=== PATIENT | female | born 1970 | race Caucasian/White ===

== ENCOUNTER → 2020-05-30 16:20 | Outpatient (CLI) | payer OTHER, SELFPAY ==
--- NOTE | ~2020-05-30 | MM_ITS ---
EXAMINATION: MM screening galen BI w prasad HISTORY: Screening TECHNIQUE: Craniocaudal and mediolateral oblique 3-D tomosynthesis images were obtained and synthetic 2-D images were generated. CAD analysis was submitted and interpreted. COMPARISON: Comparison to multiple prior studies sequentially, with oldest reviewed study dated 11/2012. BREAST PARENCHYMAL COMPOSITION: The breasts are heterogenously dense, which may obscure small masses. FINDINGS: There is no evidence of suspicious mass, calcification, or architectural distortion to sugg est malignancy in either breast. There has been no suspicious interval change. IMPRESSION: 1. No mammographic evidence of malignancy. 2. Recommend routine screening mammography in one year. BI-RADS Category 1: Negative Reviewed, dictated and finalized at location A. DSTITCH HEMMER
== END ==
PROVIDERS: PCP Family Medicine Adolescent Medicine; Visit Provider Nurse Practitioner Obstetrics & Gynecology
DX: Z12.31 Encounter for screening mammogram for malignant neoplasm of breast (principal)
CPT/HCPCS: 77063; 77067

== ENCOUNTER → 2020-06-07 07:57 | Outpatient (CLI) | payer OTHER, SELFPAY ==
--- NOTE | ~2020-06-07 | US_ITS ---
EXAMINATION: US abdomen complete EXAM DATE: 06/07/2020 08:19 INDICATION: Epigastric RUQ abd pain. TECHNIQUE: Multiple grayscale and Doppler images of the complete abdomen were obtained (by a technolo gist who performed the scan) and subsequently reviewed. There is no prior study for comparison. FINDINGS: The abdominal aorta is normal in caliber. Visualized portion IVC is patent. The pancreatic head a nd body are normal in appearance. The pancreatic tail is not visualized. The liver has normal echogenicity and contour. There are no focal liver lesions identified. There is no evidence of intrahepatic biliary duct dilation. Portal venous flow was seen in the hepatopedal , normal direction and has normal Doppler waveform. Common bile duct measures 4 mm, which is normal. The gallbladder wall is normal in thickness, with ex pected amount of distention. No sonographic evidence of pericholecystic fluid. There is no cholelit hiases. Technologist performing exam reports patient did not demonstrate sonographic Sorensen's sign. Please note that this sign is less reliable in patients who have received pain medication. Right kidney: There is normal contour and echogenicity. It measures 11.0 x 3.7 x 5.8 centimeters. There are no focal renal lesions identified. There is no hydronephrosis. Left kidney: There is normal contour and echogenicity. It measures 11.1 x 4.4 x 5.9 centimeters. T here are no focal renal lesions identified. There is no hydronephrosis. The spleen measures 10.5 centimeters and is morphologically normal. IMPRESSION: Unremarkable complete abdominal ultrasound exam. Reviewed, dictated and finalized at location B. 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
== END ==
PROVIDERS: Visit Provider Family Medicine Adolescent Medicine
DX: R10.13 Epigastric pain (principal)
CPT/HCPCS: 76700

== ENCOUNTER → 2020-06-11 18:13 | Outpatient (CLI) | payer OTHER, SELFPAY ==
--- NOTE | ~2020-06-11 | XR_ITS ---
EXAMINATION: XR lumbar spine min 4V DATE: 06/11/2020 18:36 INDICATION: Low back pain. Facet syndrome. TECHNIQUE: 5 views of lumbar spine were obtained. COMPARISON: None. FINDINGS: There is 6 degrees dextrocurvature of lumbar spine. Vertebral body heights are normal. Ther e are small endplate osteophytes at multiple levels. There is moderate bilateral facet joint osteoart hritis at L5-S1. IMPRESSION: 1. Mild lumbar spondylosis. Reviewed, dictated and finalized at location A. HELPER FRUIT IMPRESSION: 1. Mild lumbar spondylosis.
== END ==
PROVIDERS: PCP Family Medicine Adolescent Medicine
DX: M54.6 Pain in thoracic spine (principal); M47.896 Other spondylosis, lumbar region
CPT/HCPCS: 72110

== ENCOUNTER → 2020-09-04 16:56 | Outpatient (CLI) | payer OTHER, SELFPAY ==
--- NOTE | ~2020-09-04 | XR_ITS ---
EXAMINATION: XR shoulder LT min 2V DATE: 09/04/2020 17:19 INDICATION: Left shoulder pain and limited range of motion TECHNIQUE: AP internally and externally rotated and transscapular Y views of the left shoulder were o btained. COMPARISON: None FINDINGS: Normal alignment. No fracture. Glenohumeral joint is normal. Acromioclavicular joint is normal. Soft tissues are unremarkable. Visualized portions of the lungs are clear. IMPRESSION: Negative left shoulder radiographs. Reviewed, dictated and finalized at location A. ICATION DEVELOPMENT TEAM LEAD
== END ==
PROVIDERS: PCP Family Medicine Adolescent Medicine; Visit Provider Physician Assistant
DX: M25.512 Pain in left shoulder (principal)
CPT/HCPCS: 73030

== ENCOUNTER → 2020-09-10 10:12 | Outpatient (CLI) | payer OTHER, SELFPAY ==
--- NOTE | ~2020-09-10 | MR_ITS ---
EXAMINATION: MR shoulder LT wo con DATE: 09/10/2020 10:52 INDICATION: Left shoulder pain TECHNIQUE: Magnetic resonance imaging (MRI) of the affected shoulder was performed without intravenou s contrast. Sequences included axial PD-weighted FS FSE, coronal oblique PD-weighted FS FSE, coronal oblique T2-weighted FS FSE, sagittal PD-weighted FS FSE, and sagittal T1-weighted SE. COMPARISON: None. FINDINGS: Coracoacromial arch: The acromion undersurface is curved in morphology (type II). The coracoacromial ligament is normal. A nimal acromioclavicular osteoarthritis with mild subarticular cystic change at the acromion. Rotator cuff: Mild tendinopathy at the distal supraspinatus tendon. The infraspinatus, teres minor subscapularis te ndons are normal. Normal rotator cuff muscle bulk and signal. Biceps tendon, glenoid labrum and glenohumeral cartilage: Long head of the biceps tendon is normal. Glenoid labrum is normal. Glenohumeral cartilage is normal. Fluid: Small amount of fluid in the long head biceps tendon sheath which is disproportionate to the physiolo gic amount of fluid in the glenohumeral joint space consistent with mild bicipital tenosynovitis. No loose osteochondral bodies. No abnormal fluid signal in the subacromial/subdeltoid bursa to suggest b ursitis. Bones/other: Normal marrow signal with no edema, fracture or pathologic marrow replacing process. There is increas ed soft tissue density along the biceps gisela sling and capsule at the axillary recess with loss of the normal T1 hyperintense fat signal. Additionally there is mild thickening and mild increased signa l of the joint capsule at the axillary recess. IMPRESSION: 1. Thickening of the capsule at the axillary recess and increased soft tissue density along the bicep s gisela sling at the rotator cuff interval, both findings which can be seen in the setting of adhesi ve capsulitis which is ultimately a clinical diagnosis. 2. Mild tendinopathy without discrete tear at the distal supraspinatus tendon. 3. Mild bicipital tenosynovitis. Reviewed, dictated and finalized at location A. NG SERVICES MANAGER IMPRESSION: 1. Thickening of the capsule at the axillary recess and increased soft tissue d ensity along the biceps gisela sling at the rotator cuff interval, both finding s which can be seen in the setting of adhesive capsulitis which is ultimately a clinical diagnosis. 2. Mild tendinopathy without discrete tear at the distal supraspinatus tendon. 3. Mild bicipital tenosynovitis.
== END ==
PROVIDERS: PCP Family Medicine Adolescent Medicine; Visit Provider Physician Assistant
DX: M75.22 Bicipital tendinitis, left shoulder (principal)
CPT/HCPCS: 73221

== ENCOUNTER → 2021-01-11 07:18 | Outpatient (CLI) | payer OTHER, SELFPAY ==
--- NOTE | ~2021-01-11 | MR_ITS ---
EXAMINATION: MR lumbar spine wo con DATE: 01/13/2021 09:08 CDT INDICATION: Low back pain. Leg paresthesias. TECHNIQUE: Magnetic resonance imaging (MRI) of the lumbar spine was performed without intravenous con trast. Sequences included sagittal T2-weighted FSE, sagittal T2-weighted FS FSE, sagittal T1-weighted FSE, and axial T2-weighted FSE. COMPARISON: Lumbar spine series dated 06/11/2020 FINDINGS: There is normal lumbar lordosis. There is mild loss of disc height and disc signal at L3-4, L4-5 and L5-S1. Conus medullary is and cauda equina are unremarkable. No focal bone marrow signal ab normalities. The following disc levels are specifically discussed: T11-T12: The disc does not extend beyond the endplate margin. There is no facet joint osteoarthritis. There is no neural foraminal stenosis. There is no central canal stenosis. T12-L1: The disc does not extend beyond the endplate margin. There is no facet joint osteoarthritis. There is no neural foraminal stenosis. There is no central canal stenosis. L1-L2: The disc does not extend beyond the endplate margin. There is no facet joint osteoarthritis. T here is no neural foraminal stenosis. There is no central canal stenosis. L2-L3: The disc does not extend beyond the endplate margin. There is no facet joint osteoarthritis. T here is no neural foraminal stenosis. There is no central canal stenosis. L3-L4: The disc does not extend beyond the endplate margin. There is mild facet joint osteoarthritis. There is no neural foraminal stenosis. There is no central canal stenosis. L4-L5: There is mild annular disc bulging. There is mild facet joint osteoarthritis. There is no sign ificant neural foraminal stenosis. There is no central canal stenosis. L5-S1: There is mild annular disc bulging. There is mild facet joint osteoarthritis. There is no sign ificant neural foraminal stenosis. There is no central canal stenosis. IMPRESSION: 1. Mild lumbar spondylosis. Reviewed, dictated and finalized at location B. IMPRESSION: 1. Mild lumbar spondylosis.
== END ==
PROVIDERS: PCP Family Medicine Adolescent Medicine; Visit Provider Physician Assistant
DX: R20.0 Anesthesia of skin (principal); M47.816 Spondylosis without myelopathy or radiculopathy, lumbar region
CPT/HCPCS: 72148

== ENCOUNTER → 2021-01-14 16:44 | Outpatient (CLI) | payer OTHER, SELFPAY ==
--- NOTE | ~2021-01-14 | XR_ITS ---
EXAMINATION: XR pelvis 1-2V DATE: 01/14/2021 17:47 INDICATION: Chronic low back pain. TECHNIQUE: An anteroposterior view of the pelvis was obtained. COMPARISON: None. FINDINGS: Bone alignment is normal. No fracture. There is mild osteoarthritis of the hips. IMPRESSION: 1. Mild osteoarthritis of the hips. Reviewed, dictated and finalized at location A.
== END ==
PROVIDERS: PCP Family Medicine Adolescent Medicine; Visit Provider Physician Assistant
DX: M16.0 Bilateral primary osteoarthritis of hip (principal)
CPT/HCPCS: 72170

== ENCOUNTER → 2021-08-29 16:18 | Outpatient (CLI) | payer OTHER, SELFPAY ==
--- NOTE | ~2021-08-29 | MM_ITS ---
EXAMINATION: MM screening galen BI w prasad HISTORY: Screening TECHNIQUE: Craniocaudal and mediolateral oblique 3-D tomosynthesis images were obtained and synthetic 2-D images were generated. CAD analysis was submitted and interpreted. COMPARISON: Comparison to multiple prior studies sequentially, with oldest reviewed study dated 11/2012. BREAST PARENCHYMAL COMPOSITION: The breasts are heterogeneously dense, which may obscure small masses . FINDINGS: There is no evidence of suspicious mass, calcification, or architectural distortion to sugg est malignancy in either breast. There has been no suspicious interval change. IMPRESSION: 1. No mammographic evidence of malignancy. 2. Recommend routine screening mammography in one year. BI-RADS Category 1: Negative Reviewed, dictated and finalized at location A. PRINCIPAL
== END ==
PROVIDERS: PCP Family Medicine Adolescent Medicine; Visit Provider Nurse Practitioner Obstetrics & Gynecology
DX: Z12.31 Encounter for screening mammogram for malignant neoplasm of breast (principal)
CPT/HCPCS: 77063; 77067

== ENCOUNTER 2021-10-24 00:15 | Day surgery (SDC) | payer OTHER, SELFPAY ==
[2021-08-28 15:00] VITALS: BMI 25.8
[2021-10-14 13:21] VITALS: BMI 25.8
--- NOTE | 2021-10-23 13:57 | WPDANESEPPF ---
Anes - Initial Pre Proc Eval Procedure: Operation Date: 10/24/21 08:00 Proposed Procedures p Screening Colonoscopy - Jarocho Murrell MD Date/Time: 10/23/21 13:57 Surgeon: Jarocho Murrell MD Pre Op Diagnosis: neoplasm screening Patient Data Age: 51 Gender: F Height: 1.73 m Weight: 77 kg Allergies Allergy/AdvReac Type Severity Reaction Status Date / Time erythromycin base Allergy Mild Nausea and Verified 10/24/21 06:54 Vomiting Patient hx anesthesia problems: none Family hx anesthesia problems: none Results Review: All pre-operative results and documents have been reviewed as part of the pre-operative evaluation. PMFSH Past Medical History Medical History Adhesive capsulitis of left shoulder Depression ETOH abuse Surgical History Surgical History (Updated 09/16/20 @ 09:01 by Bruna Hernandez MA) History of hysterectomy (~2002) History of tonsillectomy (~1989) History of wisdom tooth extraction (~1989) Hx of removal of ovary (~2015) Family History Family History (Updated 09/16/20 @ 09:02 by Bruna Hernandez MA) Father Malignant neoplasm of prostate Rheumatoid arthritis Mother Uterine cancer Social History Social History (Updated 09/16/20 @ 09:01 by Bruna Hernandez MA) Smoking status: Never smoker Alcohol intake: current Drinks per week: 12 Alcohol use details: socially Substance use: never Substance use type: does not use Living arrangements: with family Spiritual care concerns: No Anes - Eval Final PreProcedure Day of Procedure 10/23/21 13:57 Patient weight: normal Heart: regular rate and rhythm Lungs: clear to auscultation and normal air movement Airway: Mallampati scale class II Neurological: alert and oriented Last oral intake: >/= 8 hours ASA classification: II Emergent: no Anesthetic plan: proceed Anesthesia type and monitoring: general GIVS Results Review: All pre-operative results and documents have been reviewed as part of the pre-operative evaluation. Informed Consent: The patient's anesthetic plan and its attendant risks and benefits were discussed with the patient/family/POA. Questions were solicited and answers provided to the satisfaction of the patient/family/POA.
[2021-10-24 06:56] VITALS: BP 137/87; PULSE 83; RESP 20; TEMP 36; O2SAT 100
[2021-10-24] MEDS: LACTATED RINGERS 1,000 ML 150 ML IV CONT (07:05)
--- NOTE | 2021-10-24 08:04 | WPDGICN ---
Assessment and Plan Assessment and plan (1) Encounter for screening colonoscopy: Code(s): Z12.11 - Encounter for screening for malignant neoplasm of colon Status: Acute Assessment and Plan: Patient presents for screening colonoscopy. Appears to be at average risk for colon polyps. Further recommendations will be given after endoscopy. GI Consult Note Consult date/time: 10/24/21 08:04 HPI: Kate Nathan is a 51 year old female Presents for screening colonoscopy. Patient's current weight appetite and bowel movements are normal. Patient denies abdominal pain. She has had no bleeding. Family history is noncontributory. She presents today for screening exam. Review of Systems Review of Systems: All systems reviewed & are unremarkable except as noted in HPI and below PMFSH Past Medical History Medical History Adhesive capsulitis of left shoulder Depression ETOH abuse Surgical History Surgical History (Updated 09/16/20 @ 09:01 by Bruna Hernandez MA) History of hysterectomy (~2002) History of tonsillectomy (~1989) History of wisdom tooth extraction (~1989) Hx of removal of ovary (~2015) Family History Family History (Updated 09/16/20 @ 09:02 by Bruna Hernandez MA) Father Malignant neoplasm of prostate Rheumatoid arthritis Mother Uterine cancer Social History Social History (Updated 09/16/20 @ 09:01 by Bruna Hernandez MA) Smoking status: Never smoker Alcohol intake: current Drinks per week: 12 Alcohol use details: socially Substance use: never Substance use type: does not use Living arrangements: with family Spiritual care concerns: No Meds Home Medications and Allergies Allergies Allergy/AdvReac Type Severity Reaction Status Date / Time erythromycin base Allergy Mild Nausea and Verified 10/24/21 06:54 Vomiting Vital Signs Vital Signs - 24 hr 10/24/21 06:56 Temperature 96.8 F L Pulse Rate 83 Respiratory Rate 20 Blood Pressure 137/87 Pulse Oximetry 100 Exam Narrative: Physical exam reveals patient to be alert. Vital signs stable. HEENT exam is unremarkable. Patient is anicteric. Lungs are clear to auscultation and percussion. Heart is without murmur or extra sounds. Abdominal exam bowel sounds are present soft nontender with no organomegaly. Digital external rectal exam is normal.
[2021-10-24 08:31] VITALS: BP 110/60; PULSE 74; RESP 20; O2SAT 100
[2021-10-24 08:41] VITALS: BP 111/62; PULSE 60; RESP 18; O2SAT 100
[2021-10-24 08:51] VITALS: BP 120/73; PULSE 55; RESP 18; O2SAT 100
== END 2021-10-24 09:00 | disposition home or self-care (01) ==
PROVIDERS: PCP Family Medicine Adolescent Medicine; Visit Provider Internal Medicine Gastroenterology
PROC: 0DJD8ZZ Inspection of Lower Intestinal Tract, Via Natural or Artificial Opening Endoscopic (ICD-10-PCS; CPT 45378; principal; 2021-10-24 08:00)
DX: Z12.11 Encounter for screening for malignant neoplasm of colon (principal); K64.8 Other hemorrhoids
CPT/HCPCS: 45378; J2001; J2704; J7120

== ENCOUNTER 2022-11-02 06:04 | Day surgery (SDC) | payer OTHER, SELFPAY ==
[2022-10-13 14:22] VITALS: BMI 26.3
[2022-10-19 13:46] VITALS: BMI 25.1
--- NOTE | 2022-10-31 09:37 | PM.HPGS ---
History of Present Illness History of Present Illness Consent: Risks, benefits, and alternatives have been discussed and questions answered. Patient agrees to proceed with procedure. Chief complaint: Gerd, Epigastric Pain, ABD Pain, Diarrhea Narrative: Kate Nathan is a 52 year old female referred for investgation of epigastric pain and bloating. She also had been diagnosed with irritable bowel syndrome with diarrhea 20+ years ago and reports her symptoms would be just intermittent diarrhea over the years.? She believes after her colonoscopy in October 2021 she began having worsening symptoms of diarrhea that is watery with fecal urgency with associated abdominal cramping and increased gurgling. At the time of that colonoscopy which apparently was for screening purposes, no biopsies were obtained. The abdominal cramping will dissipate after BM.? The most concerning symptom for her is that she will have nocturnal wakening of this and will keep her up all night and then will have to call off work.? She has been taking budesonide now for was 6 weeks and actually her symptoms are significantly improved. She also took Xifaxan for possible SIBO during that time. Review of Systems Review of Systems: All systems reviewed & are unremarkable except as noted in HPI and below PMFSH Past Medical History Medical History Adhesive capsulitis of left shoulder Bloating Chronic diarrhea Depression Epigastric pain ETOH abuse Fatty stools GERD (gastroesophageal reflux disease) Surgical History Surgical History History of hysterectomy (~2002) History of tonsillectomy (~1989) History of wisdom tooth extraction (~1989) Hx of removal of ovary (~2015) Family History Family History Father Malignant neoplasm of prostate Rheumatoid arthritis Mother Uterine cancer Social History Social History Smoking status: Never smoker Second hand tobacco smoke exposure: No Alcohol intake: current Drinks per week: 6 Alcohol use details: socially Substance use: never Substance use type: does not use Living arrangements: with family Occupation/Education: occupation Gender identity (if verbalized by the patient): Female Sexual Orientation (if Verbalized by the Patient): Straight or Heterosexual Spiritual care concerns: No Agree to blood products: Yes Meds Home Medications and Allergies Home Medications Medication Instructions Recorded Confirmed Type dicyclomine 10 mg capsule 10 mg PO TID #60 caps 08/20/22 11/02/22 Rx omeprazole 20 mg capsule,delayed 20 mg PO QHS #30 caps 08/20/22 11/02/22 Rx release sertraline 50 mg tablet 50 mg PO .hs #30 tabs 09/02/22 11/02/22 Rx cholestyramine (with sugar) 4 gram 4 g PO BID #60 ea 09/08/22 11/02/22 Rx powder for susp in a packet (Questran) budesonide 3 mg 9 mg PO DAILY #90 ea 09/16/22 11/02/22 Rx capsule,delayed,extended release rifaximin 550 mg tablet (Xifaxan) 550 mg PO TID 14 days #42 tabs 09/30/22 11/02/22 Rx Allergies Allergy/AdvReac Type Severity Reaction Status Date / Time erythromycin base AdvReac Mild Nausea and Verified 11/02/22 06:29 Vomiting Exam Const: General: alert Orientation/consciousness: patient oriented x3 Resp: Auscultation: clear to auscultation bilaterally Cardio: Rhythm: regular rhythm GI: GI Palp: Yes Soft to palpation and No Tenderness to palpation present (GI) Neuro: General: patient oriented x3 Assessment and Plan Assessment and plan (1) Epigastric pain: Code(s): R10.13 - Epigastric pain Status: Acute Assessment and Plan: EGD with possible biopsy or dilatation or cautery. (2) Chronic diarrhea: Code(s): K52.9 - Noninfective gastroenteritis and colitis, unspecified Status:
[2022-11-02 06:25] VITALS: BP 129/80; PULSE 77; RESP 16; TEMP 37; O2SAT 99
--- NOTE | 2022-11-02 06:50 | WPDANESEPPF ---
Anes - Initial Pre Proc Eval Procedure: Operation Date: 11/02/22 07:30 Proposed Procedures p Esophagogastroduodenoscopy - Nick Tan MD s Flexible Sigmoidoscopy - Nick Tan MD Date/Time: 11/02/22 06:50 Surgeon: Nick Tan MD Pre Op Diagnosis: Gerd, Epigastric Pain, ABD Pain, Diarrhea Patient Data Age: 52 Gender: F Height: 1.73 m Weight: 73.3 kg Allergies Allergy/AdvReac Type Severity Reaction Status Date / Time erythromycin base AdvReac Mild Nausea and Verified 11/02/22 06:29 Vomiting Home Medications Medication Instructions Recorded Confirmed Type dicyclomine 10 mg capsule 10 mg PO TID #60 caps 08/20/22 11/02/22 Rx omeprazole 20 mg capsule,delayed 20 mg PO QHS #30 caps 08/20/22 11/02/22 Rx release sertraline 50 mg tablet 50 mg PO .hs #30 tabs 09/02/22 11/02/22 Rx cholestyramine (with sugar) 4 gram 4 g PO BID #60 ea 09/08/22 11/02/22 Rx powder for susp in a packet (Questran) budesonide 3 mg 9 mg PO DAILY #90 ea 09/16/22 11/02/22 Rx capsule,delayed,extended release rifaximin 550 mg tablet (Xifaxan) 550 mg PO TID 14 days #42 tabs 09/30/22 11/02/22 Rx Patient hx anesthesia problems: none Family hx anesthesia problems: none Results Review: All pre-operative results and documents have been reviewed as part of the pre-operative evaluation. [facility] Past Medical History Medical History Adhesive capsulitis of left shoulder Bloating Chronic diarrhea Depression Epigastric pain ETOH abuse Fatty stools GERD (gastroesophageal reflux disease) Surgical History Surgical History History of hysterectomy (~2002) History of tonsillectomy (~1989) History of wisdom tooth extraction (~1989) Hx of removal of ovary (~2015) Family History Family History Father Malignant neoplasm of prostate Rheumatoid arthritis Mother Uterine cancer Social History Social History Smoking status: Never smoker Second hand tobacco smoke exposure: No Alcohol intake: current Drinks per week: 6 Alcohol use details: socially Substance use: never Substance use type: does not use Living arrangements: with family Occupation/Education: occupation Gender identity (if verbalized by the patient): Female Sexual Orientation (if Verbalized by the Patient): Straight or Heterosexual Spiritual care concerns: No Agree to blood products: Yes Anes - Eval Final PreProcedure Day of Procedure 11/02/22 06:50 Patient weight: normal Heart: regular rate and rhythm Lungs: clear to auscultation and normal air movement Airway: Mallampati scale class II Neurological: alert and oriented Last oral intake: >/= 8 hours ASA classification: II Emergent: no Anesthetic plan: proceed Anesthesia type and monitoring: general GIVS Results Review: All pre-operative results and documents have been reviewed as part of the pre-operative evaluation. Informed Consent: The patient's anesthetic plan and its attendant risks and benefits were discussed with the patient/family/POA. Questions were solicited and answers provided to the satisfaction of the patient/family/POA.
[2022-11-02] MEDS: LACTATED RINGERS 1,000 ML 150 ML IV CONT (07:06)
[2022-11-02 07:57] VITALS: BP 109/57; PULSE 60; RESP 16; O2SAT 100
[2022-11-02 08:07] VITALS: BP 109/66; PULSE 61; RESP 18; O2SAT 100
[2022-11-02 08:17] VITALS: BP 117/68; PULSE 57; RESP 18; O2SAT 100
--- NOTE | 2022-11-02 12:07 | WPDANESPN ---
Anes - Prog Note Post-Op Date/Time: 11/02/22 12:07 Cardiovascular status: normal Respiratory status: normal Airway patency: baseline Mental status: baseline Post-Op hydration status: normal Vital Signs: Last Vital Signs Temp 37.0 C 11/02/22 06:25 Pulse 57 L 11/02/22 08:17 Resp 18 11/02/22 08:17 BP 117/68 11/02/22 08:17 Pulse Ox 100 11/02/22 08:17 O2 Del Method Room Air 11/02/22 08:17 Pain Score (VAS): 0 I/O: Intake & Output 11/01/22 11/02/22 11/02/22 23:59 07:59 15:59 Intake Total 300 560 Balance 300 560 Post-procedural complaints: none Patient Feedback: Patient satisfied with anesthetic care.
== END 2022-11-02 08:40 | disposition home or self-care (01) ==
PROVIDERS: PCP Family Medicine; Visit Provider Internal Medicine Gastroenterology
PROC: 0DJ08ZZ Inspection of Upper Intestinal Tract, Via Natural or Artificial Opening Endoscopic (ICD-10-PCS; CPT 43235; principal; 2022-11-02 07:30)
PROC: 0DJD8ZZ Inspection of Lower Intestinal Tract, Via Natural or Artificial Opening Endoscopic (ICD-10-PCS; CPT 45330; 2022-11-02 07:30)
DX: R10.13 Epigastric pain (principal)
CPT/HCPCS: 43239

== ENCOUNTER 2022-11-02 08:00 | Outpatient (NON) | payer OTHER, SELFPAY | END 2022-11-02 08:01 | disposition home or self-care (01) | LOC: ANHLAB 11-03 07:27 | PROVIDERS: PCP Family Medicine; Visit Provider Internal Medicine Gastroenterology | DX: K52.9 Noninfective gastroenteritis and colitis, unspecified (principal) | CPT/HCPCS: 88305 ==

== ENCOUNTER → 2022-11-10 17:04 | Outpatient (CLI) | payer OTHER, SELFPAY ==
--- NOTE | ~2022-11-10 | MM_ITS ---
EXAMINATION: MM screening galen BI w prasad HISTORY: Screening mammogram TECHNIQUE: Craniocaudal and mediolateral oblique 3-D tomosynthesis images were obtained and synthetic 2-D images were generated. CAD analysis was submitted and interpreted. COMPARISON: 08/29/2021, 05/30/2020 BREAST PARENCHYMAL COMPOSITION:The breasts are heterogeneously dense, which may obscure small masses. FINDINGS: No suspicious mass, calcification, or architectural distortion are identified in either kerri ast to suggest malignancy. There has been no suspicious interval change. IMPRESSION: No mammographic evidence of malignancy. Recommend routine screening mammography in one year. BI-RADS Category 1: Negative Reviewed, dictated and finalized at location .
== END ==
PROVIDERS: PCP Nurse Practitioner Obstetrics & Gynecology; Visit Provider Family Medicine
DX: Z12.31 Encounter for screening mammogram for malignant neoplasm of breast (principal)
CPT/HCPCS: 77063; 77067

== ENCOUNTER → 2023-05-14 11:38 | Outpatient (CLI) | payer OTHER, SELFPAY ==
--- NOTE | ~2023-05-14 | XR_ITS ---
AP view of the pelvis and AP and lateral views of the bilateral hips Clinical history: Pain Findings: No acute fracture or dislocation is seen. Osseous alignment is anatomic. Minimal degenerati ve change of both hip joints noted. Soft tissues are unremarkable. Impression: Minimal degenerative change of both hip joints. Reviewed, dictated and finalized at location . Impression: Minimal degenerative change of both hip joints.
--- NOTE | ~2023-05-14 | XR_ITS ---
Lumbosacral Spine: AP and lateral views Clinical History: Pain Findings: The normal lordotic curve is maintained. The vertebral bodies and posterior elements are i ntact. The intervertebral disc spaces are preserved. There is mild to moderate facet arthropathy thr oughout the lower lumbar spine. The sacroiliac joints are normally outlined. Impression: Mild to moderate facet arthropathy throughout the lumbar spine. Reviewed, dictated and finalized at location M. Impression: Mild to moderate facet arthropathy throughout the lumbar spine.
== END ==
PROVIDERS: PCP Internal Medicine; Visit Provider Internal Medicine
DX: M16.0 Bilateral primary osteoarthritis of hip (principal); M54.31 Sciatica, right side
CPT/HCPCS: 72100; 73521

== ENCOUNTER 2023-06-04 15:27 | Emergency (ER) | payer OTHER, SELFPAY ==
[2023-06-04 15:36] VITALS: BP 143/84; PULSE 87; RESP 16; TEMP 36.5; O2SAT 98
--- NOTE | 2023-06-04 15:48 | ED.URI ---
HPI - URI/Sore Throat General Chief Complaint: Upper Respiratory Infection Stated Complaint: + COVID/COUGH/CONGESTION/R EARACHE/TRIED Time Seen by Provider: 06/04/23 15:48 Source: patient and RN notes reviewed Mode of arrival: ambulatory Limitations: no limitations History of Present Illness HPI Narrative: 52-year-old female who tested positive for COVID 3 days ago presented for increase in cough and right ear pain. Endorses sinus congestion and drainage. Fever has resolved. Denies sob, wheezing, n/v/d or lethargy. Pt states pcp advised evaluation. MD elicited complaint: cough Related Data Allergies Allergy/AdvReac Type Severity Reaction Status Date / Time erythromycin base AdvReac Mild Nausea and Verified 06/04/23 15:39 Vomiting Review of Systems Review of Systems: CONSTITUTIONAL: Endorses malaise, denies chills, sweats, fever EYES: Denies visual changes, redness, or discharge ENT: Reports rhinorrhea, congestion, sinus pain, otalgia, sore throat CARDIOVASCULAR: Denies chest pain, palpitations, edema RESPIRATORY: Reports cough, post nasal drainage. Denies dyspnea GASTROINTESTINAL: Denies abdominal pain, nausea, vomiting, diarrhea SKIN: Denies rash or itching MUSCULOSKELETAL: Endorses myalgia NEUROLOGIC: Endorses headache PMFSH Past Medical History Medical History Adhesive capsulitis of left shoulder Bloating Chronic diarrhea Colon cancer screening Depression Epigastric pain ETOH abuse Fatty stools Gastric polyp GERD (gastroesophageal reflux disease) IBS (irritable bowel syndrome) Surgical History Surgical History History of hysterectomy (~2002) History of tonsillectomy (~1989) History of wisdom tooth extraction (~1989) Hx of removal of ovary (~2015) Family History Family History Father Malignant neoplasm of prostate Rheumatoid arthritis Mother Uterine cancer Social History Social History Smoking status: Never smoker Second hand tobacco smoke exposure: No Alcohol intake: current Drinks per week: 6 Alcohol use details: socially Substance use: never Substance use type: does not use Living arrangements: with family Occupation/Education: occupation Gender identity (if verbalized by the patient): Female Sexual Orientation (if Verbalized by the Patient): Straight or Heterosexual Spiritual care concerns: No Agree to blood products: Yes Exam Narrative: GENERAL: mildly Ill-appearing, nontoxic no acute distress. HEAD: Normocephalic EYES: PERRLA, conjunctivae clear ENT: Mucous membranes moist. TMs pearly lamb with dull light reflex bilaterally; no tragal tenderness. Oropharynx mildly erythematous without lesions or exudate, no drooling, no hoarseness, no trismus, uvula midline. No tripod positioning, muffled voice, soft palate or pharyngeal wall bulging NECK: Supple. No lymphadenopathy CHEST: Clear to auscultation, breath sounds equal. No wheezing, rhonchi, rales, or stridor. No respiratory distress, speaks in full sentences. HEART: Regular rate and rhythm. No murmur heard. SKIN: Warm, dry, no rash. NEURO: Alert and oriented x3. PSYCH: Normal mood and affect Course Course Emergency Course: Patient is aware of diagnosis, understands and agrees to treatment plan. Anticipatory guidance given. Patient agrees to follow-up as directed and is aware of reasons to seek care at the emergency department. Portions of this record may have been created with voice recognition software Level of Care: Express Care Visit Vital Signs Vital signs: Vital Signs Temperature 97.7 F 06/04/23 15:36 Pulse Rate 87 06/04/23 15:36 Respiratory Rate 16 06/04/23 15:36 Blood Pressure 143/84 H 06/04/23 15:36 Pulse Oximetry 98 06/04/23 15:36 Temperatur
== END 2023-06-04 15:59 | disposition home or self-care (01) ==
PROVIDERS: Emergency Provider Nurse Practitioner Family; PCP Internal Medicine
DX: B34.9 Viral infection, unspecified (principal); K21.9 Gastro-esophageal reflux disease without esophagitis
CPT/HCPCS: 99213; G0463

== ENCOUNTER 2024-01-02 10:55 | Emergency (ER) | payer OTHER, SELFPAY ==
[2024-01-02 11:00] VITALS: BP 130/76; PULSE 79; RESP 16; TEMP 36.8; O2SAT 100
--- NOTE | 2024-01-02 11:07 | ED.DENTAL ---
HPI - Dental/Oral General Chief complaint: Dental/Oral Stated complaint: Mouth Pain Time Seen by Provider: 01/02/24 11:05 Source: patient Mode of arrival: ambulatory Limitations: no limitations History of Present Illness HPI Narrative: Savannah is a 53-year-old female patient presenting to the clinic today with complaints of dental pain. She reports that pain started about 4 for 5 days ago to the right gums. Does have ulcerated areas in the gums and is complaining of some dental pain with pain radiating up into the ear and to the lower jaw. Denies any fever or chills. States is very painful to eat on that side due to the ulcerations at the dental discomfort. No fever or chills. Related Data Home Medications Medication Instructions Recorded Confirmed meloxicam 7.5 mg tablet 7.5 mg PO DIRECTED 01/02/24 01/02/24 phentermine 37.5 mg tablet 37.5 mg PO DIRECTED 01/02/24 01/02/24 topiramate 50 mg tablet 50 mg PO DIRECTED 01/02/24 01/02/24 Allergies Allergy/AdvReac Type Severity Reaction Status Date / Time erythromycin base AdvReac Mild Nausea and Verified 01/02/24 11:10 Vomiting Review of Systems Review of Systems: Pertinent positives per HPI. Patient denies any fever, chills, rash, headache, visual changes, dizziness, cough, runny nose, sore throat, shortness of breath, chest pain, palpitations, nausea, vomiting, diarrhea, constipation, abdominal pain, or any urinary issues. PMFSH Past Medical History Medical History Adhesive capsulitis of left shoulder Bloating Chronic diarrhea Colon cancer screening Depression Epigastric pain ETOH abuse Fatty stools Gastric polyp GERD (gastroesophageal reflux disease) IBS (irritable bowel syndrome) Surgical History Surgical History History of hysterectomy (~2002) History of tonsillectomy (~1989) History of wisdom tooth extraction (~1989) Hx of removal of ovary (~2015) Family History Family History Father Malignant neoplasm of prostate Rheumatoid arthritis Mother Uterine cancer Social History Social History Smoking status: Never smoker Second hand tobacco smoke exposure: No Alcohol intake: current Drinks per week: 6 Alcohol use details: socially Substance use: never Substance use type: does not use Living arrangements: with family Occupation/Education: occupation Gender identity (if verbalized by the patient): Female Sexual Orientation (if Verbalized by the Patient): Straight or Heterosexual Spiritual care concerns: No Agree to blood products: Yes Comments At the time of my signature, I reviewed and agree with the nursing past medical, surgical, social, and family history. There is no relevant family history pertinent to the patient complaint. Exam Narrative: General: Well-developed, well nourished, in no apparent distress Head: Normocephalic, atraumatic Eyes: Pupils equally round and reactive to light bilaterally, EOM intact, sclera and conjunctive clear, no discharge, lids normal Ears: TMs intact and clear, ear canals clear, no drainage, grossly hearing normal. Nose: Nares patent, no discharge, no inflammation, no sinus tenderness. Mouth: Oropharynx without lesions or masses, good dentition, MMM. Gingival swelling with tenderness to palpation over the right posterior gums with ulcerations, tenderness to palpation over the to posterior molars Neck: Supple, trachea midline, no enlargement of anterior or posterior cervical nodes, no thyroid masses or goiter palpable. Cardio: Regular rate and rhythm, s1 and s2 normal, no murmur appreciated. Resp: Clear to auscultation bilaterally anteriorly and posteriorly, no rhonchi, rales, wheezing or rubs Course Course Emergency Course: P
== END 2024-01-02 11:12 | disposition home or self-care (01) ==
PROVIDERS: Emergency Provider Nurse Practitioner Family; PCP Internal Medicine
DX: K06.8 Other specified disorders of gingiva and edentulous alveolar ridge (principal); K08.89 Other specified disorders of teeth and supporting structures; K21.9 Gastro-esophageal reflux disease without esophagitis
CPT/HCPCS: 99213; G0463

== ENCOUNTER 2024-09-07 13:36 | Outpatient (CLI) | payer OTHER, SELFPAY ==
--- NOTE | ~2024-09-07 | MM_ITS ---
EXAMINATION: MM screening galen BI w prasad HISTORY: Screening TECHNIQUE: Craniocaudal and mediolateral oblique 3-D tomosynthesis images were obtained and synthetic 2-D images were generated. CAD analysis was submitted and interpreted. COMPARISON: Comparison to multiple prior studies sequentially, with oldest reviewed study dated 06/26. BREAST PARENCHYMAL COMPOSITION: Dense: The breasts are heterogeneously dense, which may obscure small masses FINDINGS: There is no evidence of suspicious mass, calcification, or architectural distortion to sugg est malignancy in either breast. There has been no suspicious interval change. IMPRESSION: 1. No mammographic evidence of malignancy. 2. Recommend routine screening mammography in one year. BI-RADS Category 1: Negative Reviewed, dictated and finalized at location B. [employer]
== END 2024-09-07 13:37 | disposition home or self-care (01) ==
LOC: MICIMG 13:38
PROVIDERS: PCP Internal Medicine; Visit Provider Internal Medicine
DX: Z12.31 Encounter for screening mammogram for malignant neoplasm of breast (principal)
CPT/HCPCS: 77063; 77067